=== PATIENT | female | born 1960 | race Caucasian/White ===

== ENCOUNTER → 2024-10-02 07:24 | Outpatient (REF) | payer BC, SELFPAY | LOC: WDC 07:24 | PROVIDERS: ATTENDING PHYSICIAN Obstetrics & Gynecology; FAMILY PHYSICIAN Nurse Practitioner Family | DX: Z12.31 Encounter for screening mammogram for malignant neoplasm of breast (principal) | CPT/HCPCS: 77063; 77067 ==

== ENCOUNTER 2024-10-08 06:46 | Day surgery (SDC) | payer BC, SELFPAY ==
[2024-10-01 09:20] LABS: Hemoglobin 13.8 g/dL (12.0-16.0); Mean Corp Hgb Conc. 32.9 g/dL (33.0-37.0); Mean Corpuscular Volume 88.2 fL (81.0-99.0); Mean Platelet Volume 11.8 fL (7.4-10.4); Platelet Count 193 10^3/uL (130-400); Red Blood Cell Count 4.76 10^6/uL (4.20-5.40); Red Cell Dist. Width 13.1 % (11.5-14.5)
[2024-10-01 09:25] LABS: INR 1.06; PT 14.1 Sec (11.4-14.6)
[2024-10-01 09:26] LABS: APTT 35.3 Sec (23.4-35.0)
[2024-10-08] VITALS (8 sets, daily range): BP systolic 109–136; BP diastolic 54–71; BMI 24.8
== END 2024-10-08 16:26 | disposition home or self-care (01) ==
LOC: SDS 06:46
PROVIDERS: ATTENDING PHYSICIAN Obstetrics & Gynecology; FAMILY PHYSICIAN Nurse Practitioner Family
DX: N84.0 Polyp of corpus uteri (principal)
CPT/HCPCS: 58558; 88305; 36415; 85027; 85610; 85730; 93005